=== PATIENT | female | born 1960 | race Caucasian/White ===

== ENCOUNTER → 2018-11-20 | Outpatient (CLI) | payer MEDICARE ==
[~2018-11-20] MED LIST: ALDACTONE25 MG PO; ASPIRIN325 MG PO; ATENOLOL25 MG PO; ATENOLOL50 MG PO; CALCIUM500 MG PO; ENALAPRIL MALE2.5 MG PO; FISH OIL 1,0001 EAC5 PO; GLIPIZIDE5 MG PO; LIPITOR40 MG PO; MULTIVITAMINS1 EAC7 PO; NEURONTIN300 MG PO; NITROGLYCERIN0.4 MG SL; OMEPRAZOLE40 MG PO; PLAVIX75 MG PO; RANEXA500 MG PO; SERTRALINE HCL25 MG PO; STOOL SOFTENER100 M1 PO; ULTRAM 50MG50 MG PO; VICTOZA 2-0.6 MG/0.1 SQ
--- NOTE | 2018-11-20 14:21 | Diagnostic Imaging Report ---
EXAMINATION: CHEST 2 VIEWS INDICATION: Syncope, collapse. COMPARISON: None FINDINGS: TUBES and LINES: None. LUNGS: Lungs are not well inflated. Central vascular congestion without evidence of edema. Mild patchy left basilar opacity, likely atelectasis. PLEURA: No pleural effusion or pneumothorax. HEART AND MEDIASTINUM: The cardiomediastinal silhouette is unremarkable. There are atherosclerotic calcifications within the aorta. Status post CABG. BONES AND SOFT TISSUES: No acute osseous abnormality. Status post median sternotomy. UPPER ABDOMEN: No free air under the diaphragm. IMPRESSION: No acute radiographic abnormality. Signed by: Dr. Nona Peguero MD on 11/20/2018 2:18 PM
== END ==
LOC: RAD 13:20
PROVIDERS: ATTEND Internal Medicine
DX: R55 Syncope and collapse (principal)
CPT/HCPCS: 71046

== ENCOUNTER → 2020-11-17 | Outpatient (CLI) | payer MEDICARE | LOC: MAMMO 14:08 | PROVIDERS: ATTEND Internal Medicine | DX: Z12.31 Encounter for screening mammogram for malignant neoplasm of breast (principal) | CPT/HCPCS: 77067 ==

== ENCOUNTER → 2020-12-15 | Outpatient (CLI) | payer MEDICARE | LOC: MAMMO 10:11 | PROVIDERS: ATTEND Internal Medicine | DX: N63.10 Unspecified lump in the right breast, unspecified quadrant (principal) ==